=== PATIENT | female | born 1965 | race Caucasian/White ===

== ENCOUNTER 2016-08-26 10:26 | Emergency (ER) | payer OTHER ==
[~2016-08-26 10:26] MED LIST: ADVAIR 100-501 EAC1 IH; ADVAIR 1001 DISK W/D PO; ADVAIR 115-21 INH; ADVAIR 250-501 EACH; ADVAIR 2501 DISK W/D PO; ADVAIR DISKU1 250/50 INH; ADVIL200 M3 PO; ALB/IPRATROPIUM/1 E1 INH; ALBUTEROL17 GM INH; ALPRAZOLAM PO; AMITRIPTYLINE H25 MG PO; AMITRYPTYLINE PO; AMLODIPINE BESY10 MG PO; ASTELIN137 MCG INH; AVANDIA PO; BACLOFEN10 MG PO; BACTRIM DS TABL1 TAB PO; BENICAR HCT 20-1 TA1 PO; BUTRANS1 EACH TD; BYETTA10 MCG/0.0 INJ; CARAFATE1 G PO; COMBIVENT RESPIM4 GM IH; COMBIVENT14.7 GM INH; CYMBALTA PO; DEPAKOTE PO; DESYREL150 M1 PO; DIFLUCAN PO; DISCONTINUED MED; DOXYCYCLINE150 MG PO; FENOFIBRATE160 MG PO; FLEXERIL10 M1 PO; FLEXERIL10 MG PO; FLUOXETINE HCL20 M1 PO; GABAPENTIN400 M2 PO; GABAPENTIN600 MG; GABAPENTIN600 MG PO; GEODAN PO; GLUCOPHAGE XR500 MG PO; GLUCOPHAGE500 MG PO; HYDROCHLOROTHIA25 MG PO; HYDROCODON-ACE1 EAC7 PO; HYDROCODONE-A1 UDTA1 PO; HYDROXYZINE HCL25 M1 PO; HYDROXYZINE PAM25 M1 PO; IBUPROFEN800 MG PO; INDERAL LA60 M1 PO; INDERAL LA60 MG PO; INDERAL20 MG PO; KLONOPIN PO; LAMICTAL PO; LAMOTRIGINE; LAMOTRIGINE200 M1 PO; LAMOTRIGINE200 MG PO; LANSOPRAZOLE30 MG PO; LANTUS100 U/ML; LATUDA80 MG PO; LEVAQUIN PO; LEXAPRO PO; LIPITOR PO; LIPITOR40 MG PO; LITHIUM PO; LOPRESSOR PO; LORTAB; LORTAB 10-5001 EACH PO; LOTREL 10/20 MG1 CAP PO; LOVAZA; LOVAZA PO; LOVAZA1 G PO; METFORMIN HCL500 M1 PO; METFORMIN PO; METHOCARBAMOL500 MG PO; MOBIC15 MG PO; NABUMETONE500 M1 PO; NAPROSYN500 MG PO; NAPROXEN PO; NAPROXEN SODIU550 MG PO; NASONEX17 GM; NEURONTIN800 MG PO; NORVASC PO; NORVASC10 MG PO; OMACOR PO; OMEPRAZOLE40 M1 PO; OMEPRAZOLE40 MG; OMEPRAZOLE40 MG PO; ORUDIS75 M1 PO; PERCOCET5/325 PO; PHENERGAN PO; PREDNISONE PO; PREMARIN; PRILOSEC PO; PRILOSEC20 M1 PO; PRILOSEC40 MG PO; PROPRANOLOL ER PO; PROPRANOLOL HCL20 MG PO; PROPRANOLOL HCL60 M1 PO; RANITIDINE HCL150 M1 PO; REGLAN PO; ROBAXIN500 MG PO; SEROQUEL PO; SIMVASTATIN20 MG PO; SYMBICORT INH; SYNTHROID; SYNTHROID PO; SYNTHROID0.1 MG PO; SYNTHROID125 PO; TAGAMET PO; TIROSINT112 MCG PO; TOPAMAX PO; TOPAMAX50 MG PO; TOPIRAGEN100 MG PO; TOPIRAMATE100 MG PO; TOPROL XL PO; TRAZADONE; TRAZODONE HCL100 MG PO; TRAZODONE HCL150 MG PO; TRAZODONE PO; TRICOR PO; TRIGLIDE160 M1 PO; TRILEPTAL PO; TYLOX 5/500 CAP1 CAP PO; ULTRAM PO; VICODIN 5/500 T1 TAB PO; VISTARIL PO; VIT D PO; VITAL-D RX TABL1 TAB PO; VITAMIN D 4001 UDTAB PO; VITAMIN D50000 UNIT PO; ZETIA; ZETIA PO; ZOFRAN PO; ZOLOFT PO; [UNRECOGNIZED DRUG - OTHER]
[2016-08-26 11:46] LABS: BASOPHIL# 0.1 X10e3 (0-0.3); BASOPHIL% 0.9 % (0-2.5); EOSINOPHIL# 0.2 X10e3 (0-0.7); EOSINOPHIL% 1.7 % (0.0-7.0); HEMATOCRIT 41.6 % (35.0-45.0); LYMPHOCYTE# 5.1 X10e3 (1.0-3.5); LYMPHOCYTE% 54.7 % (17.0-45.0); MEAN CELL VOLUME 86.3 FL (83-96); MEAN CORPUSCULAR HGB CONC 33.6 g/dL (30-36); MEAN PLATELET VOLUME 9.6 FL (6.5-11.5); MONOCYTE# 0.5 X10e3 (0-1.0); MONOCYTE% 5.9 % (3.0-12.0); NEUTROPHIL# 3.4 X10e3 (1.5-7.1); NEUTROPHIL% 36.8 % (40-75); PLATELET COUNT 259 X10e3 (140-420); RED BLOOD COUNT 4.83 X10e (3.90-5.30); RED CELL DISTRIBUTION WIDTH 15.6 % (11.0-15.5); WHITE BLOOD COUNT 9.3 X10e3 (4.0-10.5)
[2016-08-26 11:47] LABS: DIFF IND YES
[2016-08-26 12:05] LABS: ANISOCYTOSIS SL; PLATELET ESTIMATE NORMAL (NORMAL); RBC NORMAL YES
[2016-08-26 12:06] LABS: POIKILOCYTOSIS SL
[2016-08-26 12:13] LABS: URINE SOURCE CLEAN CATCH
[2016-08-26 12:20] LABS: URINE APPEARANCE CLEAR; URINE BILIRUBIN NEG (NEG); URINE BLOOD NEG (NEG); URINE COLOR YELLOW; URINE GLUCOSE >1000 MG/DL (NEG); URINE KETONE TRACE (NEG); URINE LEUKOCYTE ESTERASE NEG (NEG); URINE NITRATE NEG (NEG); URINE PROTEIN NEG (NEG); URINE SPECIFIC GRAVITY 1.035 (1.003-1.035); URINE UROBILINOGEN 0.2 MG/DL (NEG)
[2016-08-26 12:27] LABS: CULTURE INDICATED? NO
[2016-08-26 13:26] LABS: ALBUMIN SERUM 4.2 g/dL (3.5-5.0); BETA HYDROXYBUTYRATE 1.63 MMOL/L (0.02-0.27); BILIRUBIN,TOTAL 0.6 mg/dL (0.2-2.0); CALCIUM SERUM 9.5 mg/dL (8.4-10.2); CREATININE SERUM 0.7 mg/dL (0.6-1.4); GLOM FILT RATE Estimated 98.9 mL/min (>60); POTASSIUM 3.3 mmol/L (3.5-5.1); PROTEIN TOTAL SERUM 8.9 g/dL (6.0-8.3)
[2016-08-26 13:30] LABS: BILIRUBIN,INDIRECT 0.6 mg/dL (0.0-0.9)
== END 2016-08-26 14:31 | disposition home or self-care (01) ==
LOC: CED 10:26
PROVIDERS: Emergency Medicine
DX: E11.65 Type 2 diabetes mellitus with hyperglycemia (principal); J44.9 Chronic obstructive pulmonary disease, unspecified; G89.29 Other chronic pain; F17.200 Nicotine dependence, unspecified, uncomplicated; R51 Headache; Z88.8 Allergy status to other drugs, medicaments and biological substances
CPT/HCPCS: 36415; 80048; 80076; 81003; 82010; 82947; 84703; 85025; 99284

== ENCOUNTER 2016-09-08 09:17 | Inpatient (IN) | payer OTHER ==
--- NOTE | ~2016-09-08 | FU ---
[facility] Nutrition Therapy DATE: 09/15/16 Patient: JO MCGRATH Physician: MONROE Address: [address] [place] [address] Room/Bed: [address] [place] [address], Zip: [place] [address] Admit Date: 09/08/16 Date of : [birth year] Height: 4 9 Weight: 140 63.6 NUTRITION MONITORING/FOLLOW-UP: Reason: Nutrition/ TPN follow up Anthropometrics: Wt: 63.6 kg Labs: Na+ 132 Cl- 98 Gluc 235 Creat 235 Alb 2.5 Phos 5.1 Trig (09/14) 269 CRP 3.5 Accuchecks 220-243 Meds: Protonix, levemir, novolog, TPN (off ATT), MgSO4, KCl, zofran, reglan I&O's: 3059/805, last BM 09/15 Skin: No breakdown noted, no edema noted Estimated Nutrition Needs: 5748-2708 kcals (25-30 kcals/kg) 90-116 grams protein (1.4-1.8 grams/kg) Assessment: Chart reviewed, events noted. Pt is on day 3 of TPN, which is to be discontinued after the current bad per MD note. TPN is currently off per RD observation, and was running at 60 mL/hr. advanced the pt to a clear liquid diet, and now a full liquid diet. RD spoke with the pt at bedside. Pt reports some abdominal pain with clear liquids, however, no n/v. NG tube has been removed and reglan was started. Per MD note, the pt's ileus resolved. RD provided extensive gastroparesis/ DM/ pancreatitis diet education per pt request. Pt voiced understanding of the information. RD provided printed materials for the pt's reference, and recommended that the pt attend free health classes at her local health department. Pt agreed. Pt is also agreeable to trying Glucerna once daily. RD instructed the pt to drink very slow to determine tolerance. Pt agreed. Please see recommendations below. Dx: 1) Unplanned weight loss RT clinical condition AEB pt reported ~50# weight loss-ACTIVE 2)Impaired glycemic control RT PMH, poor intake and dietary habits AEB glucose 235- ACTIVE Intervention: 1. Discontinue TPN per MD 2. Advance diet as tolerated to CC/ low fat/ 6 small 3. Glucerna once daily Monitoring, Evaluation and Goals: 1. TPN; provide at least 80% nutritional needs- NO LONGER RELEVANT (TPN BEING D/C'D) [facility] Nutrition Therapy DATE: 09/15/16 Patient: JO MCGRATH Physician: MONROE Address: [address] [place] [address] Room/Bed: [address] [place] [address], Zip: [place] [address] Admit Date: 09/08/16 Date of : [birth year] Height: 4 9 Weight: 140 63.6 2. Improve labs; Na+ (NOT MET), GLUCOSE (NOT MET), ACCUCHECKS (NOT MET), TRIG (NOT MET) 3. Weight; prevent unintentional weight loss- NOT MET 4. GI; promote regular GI function- IN PROGRESS NEW GOALS: 1. Oral intake; tolerate >50% of meals without c/o n/v, intolerance 2. Improve labs; glucose, accuchecks, trig, Na+, Phos 3. Weight; prevent unintentional weight loss 4. GI; promote regular GI function Recommendations: 1. Monitor closely for tolerance of clear liquids and full liquid diet. RD instructed the pt to eat slow and report any symptoms of GI intolerance. 2. Glucerna strawberry once daily for supplemental nutrition. RD instructed pt to drink slowly and monitor for symptoms of intolerance. 3. If the pt tolerates full liquids, advance to a CC/ low fat/ 6 small meals diet. Pt encouraged to also choose lower fiber foods; however, she does not require a low fiber restriction. 4. If the pt is unable to tolerate full liquid diet, consider obtaining enteral access and initiating enteral nutrition with Vital 1.5. RD will follow up to make appropriate recommendations. 5. Contact RD for any additional nutritional needs or questions regarding diet education provided. Status: Pt is at moderate nutritional risk. Respectfully, MARCI ARIZA RD, LD [facility] Nutrition[facility] cc: client file
--- NOTE | ~2016-09-08 | DS ---
Unit #: [id number] #: [id number] Patient: JO MCGRATH [id number] [address] [address] [id number] I MR#: [id number] NAME: JO MCGRATH ROOM: [facility] Age: 51 Sex: F Admission Date: 09/08/2016 : 1965 Discharge Date: Attending Physician: Cindy Burch M.D. Primary Care Physician: Devika Meza Aprn DISCHARGE SUMMARY DISCHARGE DIAGNOSES 1. Diabetic ketoacidosis. 2. Diabetes mellitus type 2 uncontrolled with gastroparesis. 3. Nausea and vomiting secondary to gastroparesis. 4. Abdominal pain likely urinary tract infection. CAT scan is pending at the time of dictation. Urine culture is negative. 5. Hypertension. 6. Hyperlipidemia. 7. Hypothyroidism. 8. Smoking. 9. History of pancreatitis. 10. History of possible liver disease. 11. Hypokalemia. 12. Hypophosphatemia. 13. Hypocalcemia. 14. Hypomagnesemia. 15. Moderate protein malnutrition. 16. Hyponatremia likely secondary to diabetic ketoacidosis pseudohyponatremia. CONSULTATIONS None. LABORATORY DATA Glucose 143, sodium 129, potassium 3.3, creatinine 0.5, calcium 7.2, AST 19, ALT 69, alk phos 170, albumin 2.2, phosphorus 2.2, magnesium 1.5. WBC 10.7, hemoglobin 10.7, platelets 222. Hemoglobin A1c 7.9. ALLERGIES Sells and oxycodone. DISCHARGE MEDICATIONS 1. Combivent inhalation 4 times daily. 2. Symbicort 160 mcg two puffs inhalation b.i.d. 3. Spiriva 1 inhalation daily. 4. Gabapentin 800 four times daily. 5. Amitriptyline 25 mg daily. 6. Paxil 20 daily. 7. Diphenhydramine 25 p.o. b.i.d. 8. Levemir 15 units subcu daily. 9. NovoLog low dose sliding scale. 10. Carmel 2,000 mg fish oil b.i.d. 11. Omeprazole 40 mg p.o. b.i.d. 12. Synthroid 75 mcg p.o. daily. Unit #: [id number] #: [id number] Patient: JO MCGRATH 13. Nitrofurantoin 100 mg p.o. b.i.d. HOSPITAL COURSE 51-year-old admitted because of uncontrolled diabetes. DKA with diabetes mellitus type 2 uncontrolled with gastroparesis: The patient was in ICU with insulin drip. Currently she was on (1) . I am going to change her to Levemir and sliding scale and discontinued the insulin drip and start on CCD diet. I gave prescription for Levemir in sliding scale. Abdominal pain, likely urinary tract infection: CAT scan is pending at the time of dictation. Patient will be discharged and CAT scan is negative. Continue with nitrofurantoin. Bilateral leg wounds, chronic: Continue with local wound care and follow with podiatry as an outpatient. Multiple electrolyte imbalance with hypokalemia, hypomagnesemia, hypophosphatemia, and hyponatremia. Replaced hyponatremia secondary to pseudohyponatremia from DKA. Continue with insulin. Patient received IV fluids. Hypothyroidism: Continue Synthroid. History of chronic pancreatitis. CAT scan is pending. Lipase and amylase negative. FOLLOWUP Patient will be discharged home after CAT scan is negative. Follow with family physician in one week time. Follow with podiatry for foot wound in one week time on (2) on admission. They are mostly skin crackles. No deep ulcers. Discharge time taken is 35 minutes. Dictated by... Muna Vickers/wilfred TD: 09/10/2016 11:30 JOB #: [id number] DISCHARGE SUMMARY Page 1 of 1 X Cindy Burch MD X DISCHARGE SUMMARY
--- NOTE | ~2016-09-08 | CT2 ---
[facility] A Service of [facility] & [facility] RADIOLOGY TEXT RESULTS PATIENT: JO MCGRATH LOCATION: [address] : [birth year] UNIT #: [id number] AGE: [address]: Cindy Burch MD SEX: F ORDER DR: [id number] [facility] [address]. [place], [place] [address] [id number] I MR#: [id number] Acc #: [id number] NAME: JO MCGRATH : 1965 SEX: F STUDY DATE/TIME: 09/10/2016 12:43 UNIT: [facility] ROOM: [facility] STUDY DESCRIPTION: CT Abd and Pelv W Cont Attending Physician: Cindy Burch M.D. Ordering Physician: Cindy Burch M.D. Primary Care Physician: Devika Meza Aprn MEDICAL IMAGING REPORT This report is preliminary unless electronic signature is present EXAM Abdomen and pelvis CT with contrast 09/10/2016 INDICATIONS 51-year-old female with abdominal pain and tenderness in the suprapubic area for 2 days. History of pancreatitis. History of hypertension and diabetes. Status post hysterectomy and cholecystectomy. Gastric stimulator placement. TECHNIQUE Contrast-enhanced abdomen and pelvis CT was performed. This CT exam was performed with one or more of the following radiation dose reduction techniques: automatic exposure control, adjustment of mA and/or kV according to patient size, and iterative reconstruction. COMPARISON 08/23/[address] ABDOMEN: Trace to small pleural effusions present bilaterally, left slightly greater than right. Probable compressive atelectasis or, less likely, pneumonia in the lung bases. There is no pericardial effusion. Reactive-appearing pericardial node present. Aorta demonstrates no aneurysm or dissection. The pancreas is abnormal, demonstrating moderately severe acute pancreatitis. There is peripancreatic edema and stranding in the peripancreatic fat. There is fluid in the small bowel mesentery tracking into both pericolic gutters, and there is a small amount of perihepatic and perisplenic ascites. At this point, there is no drainable fluid collection or distinct pseudocyst. Main, left, and right portal veins are STS. [facility] A Service of [facility] & [facility] RADIOLOGY TEXT RESULTS PATIENT: JO MCGRATH [facility] [id number] : [birth year] UNIT #: [id number] AGE: [address]: Cindy Burch MD SEX: F ORDER DR: patent. SMV and splenic vein patent. Probable reactive. Pancreatic and gastrohepatic lymph nodes present. Correlate with amylase and lipase levels. Spleen, adrenal glands, and liver unremarkable with the exception of mild fatty infiltration of the liver. Gallbladder surgically absent. Kidneys unremarkable with the exception of a nonobstructing 4-mm stone in the left kidney. The patient is status post gastric stimulator placement. CT PELVIS: Small amount of fluid tracking in the inferior small bowel mesentery midline. Bladder is distended, but otherwise unremarkable. Small amount of free fluid in the pelvis, but no drainable fluid collection. Uterus surgically absent. There is some secondary inflammatory change of the splenic flexure of the colon. Additional probable secondary inflammatory change of the hepatic flexure of the colon. The appendix is top normal in size. No evidence of bowel obstruction. Inguinal canals are unremarkable. Osseous structures demonstrate spinal degenerative change. No suspicious bone lesion. IMPRESSION 1. Imaging findings most characteristic of moderately severe acute pancreatitis. The adjacent peripancreatic vasculature is patent, and there are reactive-appearing peripancreatic and gastrohepatic lymph nodes. No distinct pseudocyst or drainable fluid collection at this time. Correlate with amylase and lipase levels. 2. Free fluid in the mesentery in both pericolic gutters tracking into the pelvis. No drainable fluid collection. 3. Trace to small pleural effusions, left greater than right, with probable bibasilar atelectasis or less likely pneumonia. 3. Postop changes of hysterectomy, gastric stimulator placement and cholecystectomy. 4. No suspicious bone lesion. 5. Probable secondary inflammatory change of the splenic and hepatic flexures of the colon, given proximity to the inflammation of the pancreas. STAT * RESULT Dictated by... Saúl Patel M.D. THIS IS AN ELECTRONICALLY VERIFIED REPORT Saúl Patel M.D. at 09/14/2016 11:50 AM LISA/jannet TD: 09/10/2016 13:46 JOB #: [id number] [facility]. [facility] A Service of [facility] RADIOLOGY TEXT RESULTS PATIENT: JO MCGRATH LOCATION: [place] [address]-17 : [birth year] UNIT #: [id number] AGE: [address]: Cindy Burch MD SEX: F ORDER DR: MEDICAL IMAGING REPORT Page 1 of 1 COPY
--- NOTE | ~2016-09-08 | CO ---
Unit #: [id number] #: [id number] Patient: JO MCGRATH [id number] [facility]. [address] [address] [id number] I MR#: [id number] NAME: JO MCGRATH ROOM: 326 Age: 51 Sex: F Admission Date: 09/08/2016 : 1965 Attending Physician: Cindy Burch M.D. Primary Care Physician: Devika Meza Consultation Date: 09/13/2016 CONSULTATION REPORT REASON FOR CONSULT Management of diabetes mellitus. HISTORY OF PRESENT ILLNESS This is a 51-year-old lady with history of diabetes mellitus and multiple medical problems. She initially presented on 09/08/2016 to the emergency room with a chief complaint of high blood sugars. She had not seen a primary care physician in a long time. She has been taking metformin 1000 mg b.i.d. On arrival in the emergency room, she was found to have the glucose level of 673 with anion gap of 22, CO2 of 19. She was started on insulin drip. On further evaluation, she had a CT scan of the abdomen done due to the abdominal pain, which showed moderate pancreatitis. She has been n.p.o. since her admission. She is being started on TPN. I have been asked to see the patient for further management. PAST MEDICAL HISTORY History of type 2 diabetes mellitus, poorly controlled; gastroparesis; chronic pancreatitis; ampullary stenosis; hypertension; and hyperlipidemia. PAST SURGICAL HISTORY Cholecystectomy, hysterectomy, and history of cardiac cath. SOCIAL HISTORY Lives with her ex-. Smokes pack and a half a day cigarettes daily. Declines alcohol use. FAMILY HISTORY Remarkable for diabetes mellitus. ALLERGIES To oxycodone and lithium. HOME MEDICATIONS List is reviewed. REVIEW OF SYSTEMS 12-point review of system is completed. Remarkable for the abdominal pain and nausea. No fever or chills. Rest of the 12-point review of systems is unremarkable. PHYSICAL EXAMINATION GENERAL: She looks comfortable, in no acute respiratory distress. Unit #: [id number] #: [id number] Patient: JO MCGRATH VITAL SIGNS: Temperature 99.7, pulse 97, respirations 18, blood pressure 124/80. HEENT: EOMI. Pupils are equally reactive to light. NECK: Supple. No thyromegaly noted. CHEST: Good air entry. No wheezing. ABDOMEN: Soft and nondistended. Positive generalized tenderness. No guarding or rigidity noted. EXTREMITIES: No edema. NEUROLOGIC: Nonfocal. Moving all extremities. DIAGNOSTIC STUDIES LABORATORY RESULTS: Creatinine is 0.4, sodium 131, potassium is 4.3, chloride 100, CO2 is 22. Hemoglobin A1c is 13.9. ASSESSMENT 1. Type 2 diabetes mellitus, poorly controlled. 2. Acute on chronic pancreatitis. 3. Hyponatremia. 4. Hyperlipidemia. 5. TPN. PLAN Plan is to continue insulin drip, Accu-Cheks every 8 hourly, insulin 30 units in the TPN bag. Monitor electrolytes closely. We will continue to follow the patient for further management of her diabetes. Dictated by... Muna Castillo/yevgeniy TD: 09/14/2016 13:25 JOB #: [id number] CONSULTATION REPORT Page 1 of 1 X Jeff Barnhart MD X CONSULTATION REPORT
--- NOTE | ~2016-09-08 | CO ---
Unit #: [id number] #: [id number] Patient: JO MCGRATH [id number] [address] [place], [place] [address] [id number] I MR#: [id number] NAME: JO MCGRATH ROOM: [facility] Age: 51 Sex: F Admission Date: 09/08/2016 : 1965 Attending Physician: Cindy Burch M.D. Primary Care Physician: Devika Meza Aprn Consultation Date: 09/10/2016 CONSULTATION REPORT REASON FOR CONSULTATION Abdominal pain. HISTORY OF PRESENTING ILLNESS Ms. Mcgrath is a 51-year-old lady with past history of diabetes mellitus and multiple medical problems. She was admitted with nausea, vomiting, and uncontrolled diabetes with DKA, which has been controlled since she has been here. She has been complaining of abdominal pain, which is more so in the upper abdomen, however, generalized. She says she is worse with eating. This has been going on for the last several years. The patient apparently has been seeing the [facility], Dr. Mcgrath, and had a gastric stimulator placed in April, about a year and a half ago. She thinks that her symptoms are worsens then and she has not had any relief in any of the symptoms including food tolerance. She denies any recent worsening of the symptoms. She does have a history of pancreatitis, previous CT scans have not shown up much information. She does have a history of ampullary stenosis, where she had ERCPs and sphincterotomies done in 2012. PAST MEDICAL HISTORY Significant for chronic pancreatitis, ampullary stenosis, hypertension, hyperlipidemia, diabetes mellitus, gastroparesis. She is status post cholecystectomy, hysterectomy, cardiac cath, and multiple other surgeries. SOCIAL HISTORY Smoker. Denies alcohol. Denies drug use. FAMILY HISTORY Noncontributory. ALLERGIES To oxycodone and lithium. HOME MEDICATIONS Current list of medications were reviewed. REVIEW OF SYSTEMS A complete 10-point review of systems was done, which is unremarkable other than as mentioned above. PHYSICAL EXAMINATION VITAL SIGNS: Stable. GENERAL: No acute distress. HEENT: Pupils are equal and reactive. Sclerae are anicteric. Oral Unit #: [id number] #: [id number] Patient: JO MCGRATH mucosa is moist. NECK: No JVD. No lymphadenopathy. CHEST: Clear to auscultation bilaterally. CARDIOVASCULAR: Regular rate and rhythm. No murmurs. ABDOMEN: Mildly distended. Scars from previous surgery and gastric stimulator felt. Some bruising around the gastric stimulator. No organomegaly or ascites. EXTREMITIES: Without clubbing, cyanosis, or edema. NEUROLOGIC: Grossly intact. SKIN: Warm and dry. ASSESSMENT AND PLAN 1. Chronic abdominal pain, possibly secondary to gastroparesis. LFTs, amylase, and lipase were normal. We will repeat the labs. CT scan of the abdomen has been done, which is pending at this time. Cause of pain is unclear. It is chronic in nature and no acute pathology apparently. However, CT is pending at this time. We will continue with symptomatic treatment for now, and further recommendations based on the CT scan findings and otherwise. 2. Severe gastroparesis, status post gastric stimulator placement. 3. Severe weight loss over the last 3 to 4 months. May need further workup. 4. Poorly controlled diabetes mellitus. Thank you, Dr. Burch, for this interesting consult. We will follow along. Dictated by... Muna Ybarra/yevgeniy TD: 09/10/2016 22:31 JOB #: [id number] CONSULTATION REPORT Page 1 of 1 X Tha Lackey MD CONSULTATION REPORT
--- NOTE | ~2016-09-08 | CR4 ---
[facility] A Service of [facility] & [facility] RADIOLOGY TEXT RESULTS PATIENT: JO MCGRATH LOCATION: [address] : [birth year] UNIT #: [id number] AGE: [address]: Cindy Burch MD SEX: F ORDER DR: [id number] [facility] [address] [place], [place] [address] [id number] I MR#: [id number] Acc #: [id number] NAME: JO MCGRATH : 1965 SEX: F STUDY DATE/TIME: 09/11/2016 9:16 UNIT: [facility] ROOM: [facility] STUDY DESCRIPTION: CR Abdomen Flat Upright or Dec Attending Physician: Cindy Burch M.D. Ordering Physician: Tha Lackey M.D. Primary Care Physician: Devika Meza R.N. MEDICAL IMAGING REPORT This report is preliminary unless electronic signature is present EXAM Flat and upright abdomen INDICATION Distension and abdominal pain for [address] abdomen and pelvis from yesterday. FINDINGS There is no evidence for bowel obstruction. Gas, stool and oral contrast in the colon. Gastric stimulator. No free air under the diaphragm. IMPRESSION Nonobstructive bowel gas pattern. Dictated by... Jordan Mo M.D. THIS IS AN ELECTRONICALLY VERIFIED REPORT Jordan Mo M.D. at 09/13/2016 12:36 PM Sherri TD: 09/11/2016 12:38 JOB #: [id number] MEDICAL IMAGING REPORT Page 1 of 1 COPY
--- NOTE | ~2016-09-08 | EKG ---
PATIENT: JO MCGRATH UNIT #: [id number] Ventricular Rate: 81 BPM Atrial Rate: 81 BPM P-R Interval: 146 ms QRS Duration: 82 ms Q-T Interval: 346 ms QTC Calculation(Bezet): 401 ms P [place]: 23 degrees Calculated R [place]: 74 degrees Calculated T [place]: 21 degrees Diagnosis Line: Normal sinus rhythm Diagnosis Line: Normal ECG Diagnosis Line: When compared with ECG of 09-APR-2016 21:32, Diagnosis Line: Nonspecific T wave abnormality, improved in Diagnosis Line: Anterior leads Diagnosis Line: Confirmed by COURTNEY CARNEY MD ([id number]) on 09/09/2016 Diagnosis Line: 6:00:44 PM INTERPRETING MD: ROMMEL MCCRAY
--- NOTE | ~2016-09-08 | HP ---
Unit #: [id number] #: [id number] Patient: JO MCGRATH [id number] [address] [address] [id number] I MR#: [id number] NAME: JO MCGRATH ROOM: 86568 Age: 51 Sex: F Admission Date: 09/08/2016 : 1965 Attending Physician: Ana Gillespie M.D. Primary Care Physician: Devika Meza Aprn HISTORY AND PHYSICAL CHIEF COMPLAINT Diabetic complaint. HISTORY OF PRESENT ILLNESS The patient is a 51-year-old female with a past medical history of diabetes, gastroparesis, hypertension, hyperlipidemia, hypothyroidism, pancreatitis and liver disease. She presented to the emergency department for evaluation of the above. The patient is a relatively poor historian. She was apparently seeing wound care regarding an abdominal wound. [facility] told her that her blood sugar was high and to follow up with her primary care physician. She saw her primary care physician today and "was told to come to the emergency department due to elevated blood sugar." Apparently someone had increased her metformin two weeks ago from 1000 mg daily to 1000 mg b.i.d. The patient does not routinely check her blood sugars at home. She denies any chest pain. No shortness of breath. No abdominal pain. She has had nausea and vomiting. She also reports occasional dysuria and urinary frequency. She states that she has lost about 22 pounds in the past year. On arrival in the emergency department the patient's pulse and blood pressure were 97 and 115/82 respectively. Glucose on comprehensive metabolic panel was 673. CO2 was 19, anion gap was 22. She was given 2 liters of normal saline and is currently on insulin drip. She is being admitted to [facility] for evaluation and further treatment. PAST MEDICAL HISTORY 1. Admission to [facility] 11/09/2014 through 11/16/2014 for abdominal pain and chronic pancreatitis. 2. Diabetes. 3. Hypertension. 4. Hyperlipidemia. 5. Hypothyroidism. 6. Gastroparesis. 7. Liver disease is listed on the triage sheet. However, the patient denies a liter problem. PAST SURGICAL HISTORY 1. Hysterectomy. 2. Cardiac catheterization 05/31/2012 showed angiographically normal coronary arteries. 3. Cholecystectomy. Unit #: [id number] #: [id number] Patient: JO MCGRATH 4. Left knee surgery. 5. Left ankle surgery. 6. Tonsillectomy. 7. Carpal tunnel surgery. 8. Right hand surgery. 9. What sounds like gastric stimulator. SOCIAL HISTORY The patient lives with her ex-. She smokes a pack and a half of cigarettes daily. She denies alcohol use. She states that she sometimes takes hydrocodone and Percocet that are not prescribed. FAMILY HISTORY Notable for her mother having diabetes. ALLERGIES Oxycodone, lithium. HOME MEDICATIONS Metformin. Home medications will need to be reviewed and verified. REVIEW OF SYSTEMS A complete review of systems is negative except as indicated in the history of present illness. PHYSICAL EXAMINATION GENERAL: The patient is a female who is awake and alert, in no acute distress. VITALS: Temperature 98.3, pulse 97, respiratory rate 18, blood pressure 115/82, oxygen saturation 100% on room air. HEENT: The head is atraumatic. Mucous membranes are dry. NECK: Supple. Trachea midline. LUNGS: Clear to auscultation bilaterally with no increased work of breathing. HEART: Regular rate and rhythm. ABDOMEN: Soft. She does have a well-healed scar in the right upper quadrant. She also has the palpable what sounds like gastric stimulator in the right lower quadrant. EXTREMITIES: Nontender with no pedal edema. NEUROLOGIC: The patient is awake and alert. She is oriented times three. She follows commands. PSYCHIATRIC: The patient is somewhat slow to answer questions, but is cooperative. SKIN: Skin of examined areas is warm and dry. DIAGNOSTIC STUDIES IMAGING: Chest x-ray shows no acute abnormality. Cervical spine x-ray shows no acute abnormality. LABORATORY: CBC notable for white blood cell count of 10.6. CMP notable for sodium 126, but corrects to 135 when glucose of 673 is accounted for. CO2 is 19, chloride 85, anion gap 22, alkaline phosphatase 211, beta hydroxybutyrate 5.23. Arterial blood gas shows pH 7.378, pCO2 34, pO2 96.9 on room air. Amylase and lipase are essentially normal. Urinalysis notable for trace leukocyte esterase, 3+ ketones, greater than 1000 Unit #: [id number] #: [id number] Patient: JO MCGRATH glucose, 10-25 white blood cells, 1+ bacteria. Urine tox screen is positive for tricyclics. CARDIOVASCULAR: EKG shows normal sinus rhythm with a rate of 81 beats per minute. ASSESSMENT The patient is a 51-year-old female with 1. Uncontrolled diabetes. The patient is currently on insulin drip. 2. Nausea and vomiting with a history of gastroparesis. 3. Urinary tract infection. Review of [facility] records shows no positive urine cultures for review. 4. Hypertension. 5. Hyperlipidemia. 6. Hypothyroidism. 7. Tobacco abuse. 8. History of pancreatitis. 9. Possible history of liver disease. PLAN 1. Admit to ICU. 2. N.p.o. except for ice chips. 3. Continue insulin drip per protocol. 4. Neurologic checks. 5. TSH, B12 and folate. 6. Bedrest. 7. Fall precautions. 8. P.r.n. Zofran. 9. Blood cultures times two. 10. Urine culture and sensitivity on urine in the lab. 11. Rocephin 1 g IV daily pending results of urine culture. 12. Cardiac enzymes. 13. Protonix for GI prophylaxis. 14. SCDs for DVT prophylaxis. 15. Repeat labs in the morning, including magnesium. 16. Additional workup and consultants based on the above. Thirty-nine minutes critical care time spent in the care of this patient (1:15 to 1:54 p.m.). Dictated by Muna Gonzalez/carlos TD: 09/08/2016 14:47 JOB #: [id number] Unit #: [id number] #: [id number] Patient: JO MCGRATH HISTORY AND PHYSICAL Page 1 of 1 X Ana Gillespie MD HISTORY AND PHYSICAL
--- NOTE | ~2016-09-08 | CR63 ---
[facility] A Service of [facility] RADIOLOGY TEXT RESULTS PATIENT: JO MCGRATH LOCATION: CED[facility] : 61 UNIT #: [id number] AGE: [address]: Ana Gillespie MD SEX: F ORDER DR: [id number] [place] [address] [facility]. [place], [place] [address] [id number] MR#: [id number] Acc #: [id number] NAME: JO MCGRATH : 1965 SEX: F STUDY DATE/TIME: 09/08/2016 11:03 UNIT: [facility] ROOM: STUDY DESCRIPTION: CR Chest 2 View Attending Physician: Kyrie Rodney M.D. Ordering Physician: Devi Mann Pa-C Primary Care Physician: Devika Meza MEDICAL IMAGING REPORT This report is preliminary unless electronic signature is present EXAM Chest 2 views 09/08/2016 1103 hours CLINICAL HISTORY 51-year-old woman complaining of shortness of air with cough for a couple of months. Pain in the left side of neck. Elevated blood glucose. COMPARISON 04/09/2016. FINDINGS Upright PA and lateral views of the chest demonstrates stable mild cardiomegaly. The aortic and hilar contours are normal. The lungs are clear. There is no effusion. There is mild endplate spurring in the thoracic spine. IMPRESSION Mild prominence of the cardiac silhouette similar to 04/09/2016. The lungs are clear of acute densities. There is no pleural effusion or pneumothorax. Dictated by... Renu Grover M.D. THIS IS AN ELECTRONICALLY VERIFIED REPORT Renu Grover M.D. at 09/08/2016 2:29 PM LAURA/darci TD: 09/08/2016 14:03 JOB #: [id number] MEDICAL IMAGING REPORT [facility] A Service of [facility] RADIOLOGY TEXT RESULTS PATIENT: JO MCGRATH LOCATION: CED[facility] : 61 UNIT #: [id number] AGE: [address]: Ana Gillespie MD SEX: F ORDER DR: Page 1 of 1 COPY
--- NOTE | ~2016-09-08 | DS ---
Unit #: [id number] #: [id number] Patient: JO MCGRATH [id number] [address] [address] [id number] I MR#: [id number] NAME: JO MCGRATH ROOM: 326 Age: 51 Sex: F Admission Date: 09/08/2016 : 1965 Discharge Date: Attending Physician: Cindy Burch M.D. Primary Care Physician: Devika Meza DISCHARGE SUMMARY DISCHARGE DIAGNOSES 1. Acute on chronic severe pancreatitis. 2. Ileus. 3. Diabetic ketoacidosis. 4. Diabetes mellitus type 2, poorly controlled, with gastroparesis. 5. Urinary tract infection, cultures negative. 6. Hypomagnesemia. 7. Hyponatremia. 8. Hypokalemia. 9. Hypophosphatemia. 10. Smoking. 11. History of possible liver disease. 12. Hypercalcemia. 13. Moderate protein malnutrition. 14. Pseudohyponatremia from diabetic ketoacidosis. CONSULTATION 1. Dr. Barnhart. 2. Dr. Lackey. 3. Dr. Lopez. PROCEDURES None. DIAGNOSTIC STUDIES LABORATORY DATA: Glucose 80, sodium 133, potassium 4.3, creatinine 0.5, magnesium 1.8, phosphorus 5.4, WBC 8.3, hemoglobin 10.5, platelets 261. IMAGING: CAT scan of the abdomen and pelvis shows moderately severe acute pancreatitis. ALLERGIES Carbon and oxycodone. DISCHARGE MEDICATIONS 1. Duo-Nebs inhalation four times daily. 2. Symbicort 160 mcg, two inhalations b.i.d. 3. Spiriva, one inhalation daily. 4. Gabapentin 800 p.o. four times daily. 5. Amitriptyline 25 daily. 6. Paxil 20 daily. 7. Breo Ellipta 100/25 mcg inhalation daily. 8. Levemir 40 units subcu q.8 a.m. 9. NovoLog medium dose sliding scale. Unit #: [id number] #: [id number] Patient: OJ MCGRATH 10. NovoLog 5 units subcu three times daily with meals. 11. Granby 3 2000 mg p.o. b.i.d. 12. Omeprazole 40 p.o. b.i.d. 13. Synthroid 75 mcg p.o. daily. HOSPITALIZATION COURSE 51-year-old admitted because of uncontrolled sugars. The patient was admitted in ICU for DKA protocol. DKA was resolved but later she developed abdominal pain. CAT scan has been done which shows acute severe pancreatitis. She does have a history of pancreatitis so she continues with TPN and p.o. Currently, she is tolerating diet. I will put her on low fat, low residue (1) diet. She wants to go home. She will follow [facility] dietary services manager for pancreatitis and gastroparesis. Diabetes mellitus type 2, uncontrolled with DKA and gastroparesis: Patient received insulin protocol DKA. Currently, she is on Levemir and NovoLog with meals. Sugars are well controlled. I gave her prescription. She will follow [facility] for that. She does have stimulator for gastroparesis. Multiple electrolyte imbalance, replaced, currently stable. Urinary tract infection: Cultures negative. She received Rocephin. She does not need antibiotics to go home. I discussed with Dr. Jain. Andrade to DC home. Follow with family physician in one week time. Follow with [facility] Gastroenterology for pancreatitis and gastroparesis in two weeks time. Discharge time taken is 32 minutes. Dictated by... Muna Vickers/simona TD: 09/16/2016 12:09 JOB #: [id number] DISCHARGE SUMMARY Page 1 of 1 X Cindy Burch MD X DISCHARGE SUMMARY
--- NOTE | ~2016-09-08 | FU ---
[facility] Nutrition Therapy DATE: 09/13/16 Patient: JO MCGRATH Physician: MONROE Address: [address] [place] [address] Room/Bed: [address], Zip: [place] [address] Admit Date: 09/08/16 Date of : [birth year] Height: 4 9 Weight: 147 67 NUTRITION MONITORING/FOLLOW-UP: Reason: TPN nutrition assessment/ nutrition follow up Anthropometrics: Ht: 4'9" (differs from initial assessment, this wt per pt report) Adm wt: 64.5 kg (142#) BMI: 30.8 *Wt since admission range from 64.5- 67 kg, noting abdominal distension and NG o/p Labs: Na+ 131 Gluc 135 BUN <5 Creat 0.4 Accuchecks 122-150 Meds: TPN (not initiated yet), D50%, novolin, protonix, MgSO4, KCl, zofran I&O's: 2665/3486, last BM 09/07, NG to LWS with average 600 cc output per RN report, abodmen tender and distended Skin: No changes noted, no edema Estimated Nutrition Needs: Increased due to pancreatitis, weight loss 6281-5820 kcals (25-30 kcals/kg) 90-116 grams protein (1.4-1.8 grams/kg) Diet: NPO Assessment: Chart reviewed, events noted. RN reports to RD that the pt has been diagnosed with pancreatitis, and TPN has been ordered. RD spoke with the pt at bedside. Pt reports that she has abdominal pain (slightly improved) with no n/v at this time. Pt is currently NPO due to pancreatitis. Pt reports that she used to weight 187#, and has lost ~50# with poor intake since gastric stimulator placement. Pt reports that she weighed close to 140# at her last doctor's visit. RN reports that the pt has ~600cc NG tube output x [address] spoke with pharmacy regarding TPN, recommended using 15% dextrose formula. Please see recommendations below. Dx: 1) Unplanned weight loss RT clinical condition, PMH AEB pt reported ~50# weight loss-ACTIVE 2) Impaired glycemic control RT PMH, poor PO intake and dietary habits AEB accuchecks 122-150, glucose 135- ACTIVE Intervention: 1. TPN 2. EN or diet advancement once medically feasible [facility] Nutrition Therapy DATE: 09/13/16 Patient: JO MCGRATH Physician: MONROE Address: [address] [place] [address] Room/Bed: [address], Zip: [place] [address] Admit Date: 09/08/16 Date of : [birth year] Height: 4 9 Weight: 147 67 Monitoring, Evaluation and Goals: 1. Oral intake- NO LONGER RELEVANT/ NOT MET (pt is NPO) 2. Improve labs- glucose improved, electrolytes improved 3. Weight; prevent further weight loss- IN PROGRESS NEW GOALS: 1. TPN; provide at least 80% estimated needs 2. Improve labs; Na+, glucose, accuchecks, trig 3. Weight; prevent unintentional weight loss 4. GI; promote regular GI function Recommendations: 1. Recommend using TPN 15% dextrose solution. Start at low rate (dosing per pharmacy) and increase gradually to goal of 90 mL/hr. This will provide: 1102 Kcals dextrose 1534 kcals total 108 grams protein GUR= 3.5 *RD not recommending to cycle lipids at this time d/t pancreatitis MONITOR ELECTROLYTES, GLUCOSE AND TRIGLYCERIDE LEVELS CLOSELY 2. Continue bowel rest until the pt is deemed appropriate for PO intake or enteral nutrition. Recommend Vital 1.5 if enteral nutrition is initiated. RD will follow to make recommendations as appropriate. 3. If the pt is deemed appropriate for PO intake, advance to clear liquid diet as tolerated. If the pt is able to tolerate clear liquids, advance to a low fat/ 45 gram consistent carbohydrate diet as tolerated. RD will follow up to order supplements as appropriate. Status: Pt is at severe nutritional risk. Respectfully, MARCI ARIZA RD, LD [facility] Nutrition Therapy DATE: 09/13/16 Patient: JO MCGRATH Physician: MONROE Address: [address] [place] [address] Room/Bed: [address], Zip: [place] [address] Admit Date: 09/08/16 Date of : [birth year] Height: 4 9 Weight: 147 67 Food and Nutritional Services [facility] cc: client file
--- NOTE | ~2016-09-08 | A ---
[facility] Nutrition Therapy DATE: 09/09/16 Patient: JO MCGRATH Physician: MONROE Address: [address] [place] [address] Room/Bed: [address], Zip: [place] [address] Admit Date: 09/08/16 Date of : [birth year] Height: 4 9 Weight: 142 64.5 NUTRITIONAL ASSESSMENT: REASON: DKA 51 yo female admitted for DKA/ uncontrolled DM PMH: DM, gastroparesis s/p gastric stimulator, HTN, HLD, hypothyroid, pancreatitis, liver disease Anthropometrics: Ht: 4'11" Wt: 64.5 kg BMI: 28.7 Labs: Na+ 131 Gluc 260 Ca++ 7.8 Alb 2.4 Mg++ 1.5 Phos 1.4 Accuchecks 118-299 HgbA1C 13.9 Meds: Glucophage, novolin, D5%, D50%, levemir, zofran, MgSO4, KCl, protonix I/O & Bowel function: , last BM 09/07 Skin Integrity: cracks on heels per RN report Edema: none noted Diet: Consistent carbohydrate Assessment: Chart reviewed, events noted. 51 yo female admitted for DKA. Insulin drip has been discontinued, and that pt has been ordered a consistent carbohydrate diet. Pt consumed Jello and orange juice this AM for breakfast for RN report. RN requested that RD provide basic DM diet education for the pt. RD spoke with the pt at bedside. Pt was drowsy at time of RD visit. Pt reports having a fair appetite at this time, and consuming mostly clear liquids for breakfast. Pt ordered soup for lunch, which has not arrived as of yet. Pt reports ~51# weight loss (187# to 136#) in the last "couple of months" due to decreased/ no intake in relation to GI issues. Pt reports h/o gastroparesis s/p gastric stimulator placement, and states that her intake has been declining since the stimulator was placed. Per weights in [facility], the pt weighed 175# in 2014; however, the pt's weight loss report is not consistent with weight history in [facility]. RN reports that 22# weight loss was noted in the initial H&P. RD provided brief gastroparesis/ DM diet education; however, the pt will need more extensive diet education when she is not lethargic. Based on RD interview with the pt, she will need basic DM/ gastroparesis education. RN discussed the pt's weight loss with RN, and recommended GI consult. Please see recommendations below. Dx: 1) Unplanned weight loss RT clinical condition, likely gastroparesis AEB pt reported weight loss, exact amount unknown. [facility] Nutrition Therapy DATE: 09/09/16 Patient: JO RAMILA Physician: MONROE Address: [address] [place] [address] Room/Bed: [address], Zip: [place] [address] Admit Date: 09/08/16 Date of : [birth year] Height: 4 9 Weight: 142 64.5 2) Impaired glycemic control RT likely poor likestyle habits and lack of nutrition-related knowledge AEB accuchecks 118-299, glucose 260. Intervention: 1. Gastroparesis/ DM diet education 2. Add 6 small meals to diet order 3. Glucerna if needed 4. Outpatient RD Monitoring, Evaluation and Goals: 1. Oral intake; tolerate >50% of meals without c/o GI intolerance 2. Improve labs; glucose, accuchecks, Phos, Mg++, A1C 3. Weight; prevent further unintentional weight loss Recommendations: 1. Add 6 small meals to current diet order d/t gastroparesis. Add heart healthy restriction once the pt's intake improves. 2. Glucerna BID PRN for decreased PO intake. 3. Pt would benefit from follow up diet education. RD will provide more extensive diet education at follow up once the pt is more awake. RD also recommending that the pt see an outpatient RD for gastroparesis/ DM diet eduaction for follow up and accountability. 4. GI consult due to the pt's reported weight loss since gastric stimulator placement (if deemed appropriate per the primary team). Pt is at moderate nutritional risk. RD will follow up per protocol. Respectfully, MARCI ARIZA RD, LD Food and Nutritional Services [facility] cc: client file
--- NOTE | ~2016-09-08 | CR72 ---
[facility] A Service of [facility] & [facility] RADIOLOGY TEXT RESULTS PATIENT: JO MCGRATH LOCATION: [facility] 326-01 : 63 UNIT #: [id number] AGE: [address]: Cindy Burch MD SEX: F ORDER DR: [id number] [facility] [address]. [place], [place] [address] [id number] I MR#: [id number] Acc #: [id number] NAME: JO MCGRATH : 1965 SEX: F STUDY DATE/TIME: 09/14/2016 3:33 UNIT: [facility] ROOM: [facility] STUDY DESCRIPTION: CR Chest Single View Portable Attending Physician: Cindy Burch M.D. Ordering Physician: Meryl Lopez M.D. Primary Care Physician: Devika Meza R.N. MEDICAL IMAGING REPORT This report is preliminary unless electronic signature is present EXAM Portable chest INDICATION Shortness of air and cough. PROCEDURE Frontal view chest COMPARISON 09/08/2016 FINDINGS Heart size is stable. Atelectasis in the medial left lung base. No visible pneumothorax. IMPRESSION Atelectasis in the medial left lung base, otherwise unchanged from 09/08/2016. Dictated by... Nate Little M.D. THIS IS AN ELECTRONICALLY VERIFIED REPORT Nate Little M.D. at 09/14/2016 9:53 PM JOELLE/tommy TD: 09/14/2016 09:00 JOB #: [id number] MEDICAL IMAGING REPORT Page 1 of 1 COPY
--- NOTE | ~2016-09-08 | CR58 ---
[facility] A Service of [facility] RADIOLOGY TEXT RESULTS PATIENT: JO MCGRATH LOCATION: [facility] [address]-60 : [birth year] UNIT #: [id number] AGE: [address]: Ana Gillespie MD SEX: F ORDER DR: [id number] [facility] [address]. [place], [place] [address] [id number] E MR#: [id number] Acc #: [id number] NAME: OJ MCGRATH : 1965 SEX: F STUDY DATE/TIME: 09/08/2016 UNIT: [facility] ROOM: STUDY DESCRIPTION: CR Cervical Spine 2 or 3 Views Attending Physician: Kyrie Rodney M.D. Ordering Physician: Devi Mann Pa-C Primary Care Physician: Devika Meza MEDICAL IMAGING REPORT This report is preliminary unless electronic signature is present EXAM Cervical spine series 09/08/2016 11:02 hours HISTORY 51-year-old with left-sided neck pain for a couple of months. No known injury. COMPARISON 08/14/2015 FINDINGS AP, lateral and open mouth views are performed. C1 to the mid C7 level are visualized. There is no prevertebral soft tissue swelling. There is disc height loss at C4-5 and C6-7. There is no fracture or malalignment. There is mild facet arthropathy left greater than right in the midcervical levels. There are atherosclerotic calcifications in the left greater than right neck in the region of the carotid bifurcations similar to 08/14/2015. IMPRESSION 1. No fracture or malalignment. Mild degenerative disc disease and C4-5 and C6-7 with mild multilevel facet arthropathy similar to 08/14/2015. 2. Stable soft tissue calcifications in the region of the carotid bifurcation on the left which could indicate significant underlying atherosclerosis. Dictated by... Renu Grover M.D. THIS IS AN ELECTRONICALLY VERIFIED REPORT Renu Grover M.D. at 09/08/2016 2:29 PM SMM/mathieu TD: 09/08/2016 13:51 [facility] A Service of [facility] RADIOLOGY TEXT RESULTS PATIENT: JO MCGRATH LOCATION: [facility] [id number] : [birth year] UNIT #: [id number] AGE: [address]: Ana Gillespie MD SEX: F ORDER DR: JOB #: [id number] MEDICAL IMAGING REPORT Page 1 of 1 COPY
--- NOTE | ~2016-09-08 | CO ---
Unit #: [id number] #: [id number] Patient: JO MCGRATH [id number] [address] [place], [place] [address] [id number] I MR#: [id number] NAME: JO MCGRATH ROOM: [facility] Age: 51 Sex: F Admission Date: 09/08/2016 : 1965 Attending Physician: Cindy Burch M.D. Primary Care Physician: Devika Meza Aprn Consultation Date: 09/08/2016 CONSULTATION REPORT HISTORY OF PRESENT ILLNESS This is a 51-year-old lady, history of diabetes mellitus with multiple medical problems. The patient admitted with nausea, vomiting, poorly controlled diabetes with DKA. She has been complaining of significant abdominal pain as well as difficulty eating going on for 10 years. The patient has been seeing [facility]. The patient has had a gastric stimulator placed about a year and a half ago. Symptoms are worsening. She has not had any significant improvement. The patient is currently having abdominal bloating. She has a history of pancreatitis. Previous CT scans have not shown a lot of information. The patient has a history of ampullary stenosis with ERCPs and sphincterotomies. The patient has a history of chronic pancreatitis, hyperlipidemia, diabetes mellitus, gastroparesis. She is also status post cholecystectomy. So, we have been asked to see this patient for ICU management for DKA, gastroparesis, rule out aspiration pneumonia. PAST MEDICAL HISTORY Significant for chronic pancreatitis, ampullary stenosis, hypertension, hyperlipidemia, diabetes mellitus, gastroparesis. PAST SURGICAL HISTORY Significant for cholecystectomy, hysterectomy, and cardiac cath. SOCIAL HISTORY The patient is a chronic smoker. No alcohol. No polysubstance use. FAMILY HISTORY Noncontributory. ALLERGIES The patient is allergic to oxycodone and lithium. HOME MEDICATIONS Include Combivent 1 inhalation q.i.d., Spiriva Respimat one puff daily, Breo Ellipta one puff daily, Paxil 20 mg daily, Wal-Dryl 20 mg b.i.d., gabapentin 800 mg q.i.d., omega fatty acids daily, Symbicort two puffs b.i.d., Norvasc 10 mg daily, metformin 1000 mg p.o. daily, Synthroid 75 mcg daily, omeprazole 40 mg b.i.d., amitriptyline 25 mg daily. REVIEW OF SYSTEMS Negative except as per the history of present illness. PHYSICAL EXAMINATION VITAL SIGNS: Temperature 99.0, respiratory rate 20, pulse is 99, Unit #: [id number] #: [id number] Patient: JO MCGRATH saturation 92% on room air. HEENT: Extraocular movements are intact. CHEST: Lungs are clear to auscultation bilaterally. CARDIOVASCULAR: Regular rate. No gallop. ABDOMEN: Soft, distended, very quite tender. EXTREMITIES: Show some wasting. Lower extremities shows edema +1. DIAGNOSTIC STUDIES LABORATORY RESULTS: Potassium 3.4, BUN and creatinine less than 5/0.4, glucose 131. White count 9, hemoglobin 10.9, platelets of 218. Total protein 5.5, albumin 2.0, bilirubin 0.4, alkaline phosphatase 188. Amylase and lipases are 10 and 13 respectively. Liver function tests within normal limits. Magnesium is 1.7. ASSESSMENT AND PLAN 1. Diabetes mellitus. 2. Diabetic ketoacidosis. 3. Ileus on nasogastric suction. 4. Gastroparesis with stimulator. 5. Acute on chronic respiratory failure. 6. Weight loss. We are going to continue treatment of DKA. We are going to continue low wall suction. We are going to continue scheduled nebs. I am not going to do any schedule steroids at this time. Antibiotics per Gastroenterology. I am going to follow. Thank you very much. Please page me at [phone] if you have any questions. Dictated by... Muna Panchal/yevgeniy TD: 09/12/2016 01:52 JOB #: [id number] CONSULTATION REPORT Page 1 of 1 X Manny Lopez MD CONSULTATION REPORT
--- NOTE | ~2016-09-08 | CR72 ---
[facility] A Service of [facility] RADIOLOGY TEXT RESULTS PATIENT: JO MCGRATH LOCATION: [facility] 326- : 61 UNIT #: [id number] AGE: [address]: Cindy Burch MD SEX: F ORDER DR: [id number] [facility] [address] [place], [place] [address] [id number] I MR#: [id number] Acc #: [id number] NAME: JO MCGRATH : 1965 SEX: F STUDY DATE/TIME: 09/15/2016 4:56 UNIT: [address] ROOM: [facility] STUDY DESCRIPTION: CR Chest Single View Portable Attending Physician: Cindy Burch M.D. Ordering Physician: Meryl Lopez M.D. Primary Care Physician: Devika Meza R.N. MEDICAL IMAGING REPORT This report is preliminary unless electronic signature is present EXAM Portable chest INDICATION Shortness of air today PROCEDURE Frontal view chest COMPARISON 09/14/2016 FINDINGS Heart size is unchanged. No new dense consolidation or visible pneumothorax. IMPRESSION Stable. Dictated by... Nate Little M.D. THIS IS AN ELECTRONICALLY VERIFIED REPORT Nate Little M.D. at 09/15/2016 10:13 PM JOELLE/tommy TD: 09/15/2016 10:13 JOB #: [id number] MEDICAL IMAGING REPORT Page 1 of 1 COPY
--- NOTE | ~2016-09-08 | EKG ---
PATIENT: JO MCGRATH UNIT #: [id number] Ventricular Rate: 90 BPM Atrial Rate: 90 BPM P-R Interval: 134 ms QRS Duration: 82 ms Q-T Interval: 384 ms QTC Calculation(Bezet): 469 ms P [place]: 37 degrees Calculated R [place]: 57 degrees Calculated T [place]: 32 degrees Diagnosis Line: Normal sinus rhythm Diagnosis Line: Possible Anterior infarct , age undetermined Diagnosis Line: Abnormal ECG Diagnosis Line: When compared with ECG of 08-SEP-2016 11:24, Diagnosis Line: (unconfirmed) Diagnosis Line: Nonspecific T wave abnormality, worse in Anterior Diagnosis Line: leads Diagnosis Line: QT has lengthened Diagnosis Line: Confirmed by SUMAN MCCRAY, ROSALINDA ([id number]) on 09/09/2016 Diagnosis Line: 9:18:50 PM INTERPRETING MD: SUMAN MCCRAY
[2016-09-08 10:19] LABS: BASOPHIL# 0.1 X10e3 (0-0.3); BASOPHIL% 0.7 % (0-2.5); EOSINOPHIL% 0.1 % (0.0-7.0); HEMOGLOBIN 12.6 gm/dL (12.0-16.0); LYMPHOCYTE# 3.5 X10e3 (1.0-3.5); LYMPHOCYTE% 32.5 % (17.0-45.0); MEAN CELL VOLUME 85.8 FL (83-96); MEAN CORPUSCULAR HEMOGLOBIN 28.4 PG (28-34); MEAN CORPUSCULAR HGB CONC 33.1 g/dL (30-36); MEAN PLATELET VOLUME 8.6 FL (6.5-11.5); MONOCYTE# 0.7 X10e3 (0-1.0); NEUTROPHIL# 6.3 X10e3 (1.5-7.1); NEUTROPHIL% 59.7 % (40-75); PLATELET COUNT 364 X10e3 (140-420); RED BLOOD COUNT 4.42 X10e (3.90-5.30); RED CELL DISTRIBUTION WIDTH 16.2 % (11.0-15.5); WHITE BLOOD COUNT 10.6 X10e3 (4.0-10.5)
[2016-09-08 10:22] LABS: DIFF IND NO
[2016-09-08 10:48] LABS: ALBUMIN SERUM 3.6 g/dL (3.5-5.0); BETA HYDROXYBUTYRATE 5.23 MMOL/L (0.02-0.27); BILIRUBIN, DIRECT 0.2 mg/dL (0.0-0.2); BILIRUBIN,INDIRECT 1.4 mg/dL (0.0-0.9); BILIRUBIN,TOTAL 1.6 mg/dL (0.2-2.0); BUN/CREATININE RATIO 16.66; CREATININE SERUM 0.9 mg/dL (0.6-1.4)
[2016-09-08 11:47] LABS: URINE SOURCE CLEAN CATCH
[2016-09-08 11:56] LABS: ARTERIAL BLD GAS O2 SATURATION 93.1 % (90.0-100.0); ARTERIAL BLOOD GAS CARBOXY HB 3.8 %sat (0.0-9.0); ARTERIAL BLOOD GAS MET HB 0.8 %sat (0.0-2.0); ARTERIAL BLOOD GAS PO2 96.9 mmHg (80.0-100); ARTERIAL BLOOD GAS pH 7.378 (7.350-7.450)
[2016-09-08 11:57] LABS: ARTERIAL BLOOD GAS ALLEN TEST NORMAL; ARTERIAL BLOOD GAS ART SITE RIGHT RADIAL; ARTERIAL BLOOD GAS DELIVERY ROOM AIR; ARTERIAL DRAW? YES
[2016-09-08 12:02] LABS: URINE APPEARANCE CLEAR; URINE BILIRUBIN NEG (NEG); URINE BLOOD NEG (NEG); URINE COLOR YELLOW; URINE GLUCOSE >1000 MG/DL (NEG); URINE KETONE 3+ (NEG); URINE LEUKOCYTE ESTERASE TRACE (NEG); URINE NITRATE NEG (NEG); URINE PROTEIN NEG (NEG); URINE SPECIFIC GRAVITY 1.036 (1.003-1.035); URINE UROBILINOGEN 0.2 MG/DL (NEG)
[2016-09-08 12:04] LABS: CULTURE INDICATED? YES; U HYALINE CASTS AUWI 0-2 /[LPF]; URBCS1 AUWI 0-2 /[HPF] (0-2); URINE BACTERIA AUWI 1+ (NEGATIVE)
[2016-09-08 12:16] LABS: AMYLASE 20 U/L (0-46); LIPASE 21 U/L (22-51)
[2016-09-08 12:18] LABS: URINE SQUAMOUS EPITHELIAL CELL FEW /[HPF]
[2016-09-08 12:33] LABS: AMPHETAMINE NEG (NEG); BARBITURATES NEG (NEG); BENZODIAZEPINES NEG (NEG); COCAINE NEG (NEG); MARIJUANA NEG (NEG); OPIATES NEG (NEG); TRICYCLIC ANTIDEPRESSANTS POS (NEG); U METHADONE NEG (NEG)
[2016-09-08] MEDS ORDERED: FORTAMET1000 MG PO (14:03)
[2016-09-08] MEDS ORDERED: NORVASC10 MG PO (14:03)
[2016-09-08] MEDS ORDERED: SYNTHROID75 MCG PO (14:04)
[2016-09-08] MEDS ORDERED: OMEPRAZOLE40 M1 PO (14:04)
[2016-09-08] MEDS ORDERED: AMITRIPTYLINE H25 MG PO (14:04)
[2016-09-08] MEDS ORDERED: PAXIL PO (14:05)
[2016-09-08] MEDS ORDERED: GABAPENTIN800 MG PO (14:05)
[2016-09-08] MEDS ORDERED: WAL-DRYL25 MG PO (14:05)
[2016-09-08] MEDS ORDERED: SYMBICORT PO (14:06)
[2016-09-08] MEDS ORDERED: COMBIVENT U/D3 M2 PO (14:06)
[2016-09-08] MEDS ORDERED: OMEGA 3 1,0001 EACH PO (14:06)
[2016-09-08] MEDS ORDERED: SPIRIVA RESPIMAT4 G1 PO (14:07)
[2016-09-08] MEDS ORDERED: BREO ELLIPTA 11 EACH PO (14:07)
[2016-09-08 15:12] LABS: CALCIUM SERUM 8.7 mg/dL (8.4-10.2); CREATININE SERUM 0.6 mg/dL (0.6-1.4); GLOM FILT RATE Estimated 104.1 mL/min (>60); POTASSIUM 3.5 mmol/L (3.5-5.1)
[2016-09-08 16:10] LABS: FOLATE (FOLIC ACID) 5.8 ng/mL (>5.8)
[2016-09-08 18:33] LABS: CALCIUM SERUM 8.4 mg/dL (8.4-10.2); CREATININE SERUM 0.5 mg/dL (0.6-1.4); GLOM FILT RATE Estimated 110.5 mL/min (>60); POTASSIUM 3.2 mmol/L (3.5-5.1)
[2016-09-08 18:43] LABS: CK TOTAL 44 IU/L (26-140)
[2016-09-09 02:09] LABS: CALCIUM SERUM 7.9 mg/dL (8.4-10.2); CREATININE SERUM 0.5 mg/dL (0.6-1.4); GLOM FILT RATE Estimated 110.5 mL/min (>60); POTASSIUM 3.4 mmol/L (3.5-5.1)
[2016-09-09 04:59] LABS: BASOPHIL% 0.1 % (0-2.5); DIFF IND NO; EOSINOPHIL# 0.1 X10e3 (0-0.7); EOSINOPHIL% 0.9 % (0.0-7.0); HEMATOCRIT 35.3 % (35.0-45.0); HEMOGLOBIN 11.7 gm/dL (12.0-16.0); LYMPHOCYTE# 3.8 X10e3 (1.0-3.5); LYMPHOCYTE% 36.6 % (17.0-45.0); MEAN CELL VOLUME 84.1 FL (83-96); MEAN CORPUSCULAR HEMOGLOBIN 27.8 PG (28-34); MEAN CORPUSCULAR HGB CONC 33.1 g/dL (30-36); MEAN PLATELET VOLUME 8.4 FL (6.5-11.5); MONOCYTE# 0.5 X10e3 (0-1.0); MONOCYTE% 4.8 % (3.0-12.0); NEUTROPHIL# 5.9 X10e3 (1.5-7.1); NEUTROPHIL% 57.6 % (40-75); PLATELET COUNT 273 X10e3 (140-420); RED BLOOD COUNT 4.19 X10e (3.90-5.30); RED CELL DISTRIBUTION WIDTH 16.5 % (11.0-15.5); WHITE BLOOD COUNT 10.3 X10e3 (4.0-10.5)
[2016-09-09 05:29] LABS: ALBUMIN SERUM 2.4 g/dL (3.5-5.0); BILIRUBIN,TOTAL 0.4 mg/dL (0.2-2.0); BUN/CREATININE RATIO 13.33; CALCIUM SERUM 7.9 mg/dL (8.4-10.2); CREATININE SERUM 0.6 mg/dL (0.6-1.4); GLOM FILT RATE Estimated 104.1 mL/min (>60); MAGNESIUM 1.5 mg/dL (1.6-3.0); PHOSPHOROUS 1.4 mg/dL (2.5-4.6); POTASSIUM 3.5 mmol/L (3.5-5.1)
[2016-09-09 12:36] LABS: BUN/CREATININE RATIO 12.85; CALCIUM SERUM 7.8 mg/dL (8.4-10.2); CREATININE SERUM 0.7 mg/dL (0.6-1.4); GLOM FILT RATE Estimated 98.9 mL/min (>60); POTASSIUM 4.5 mmol/L (3.5-5.1)
[2016-09-09 16:43] LABS: BUN/CREATININE RATIO 13.33; CALCIUM SERUM 7.8 mg/dL (8.4-10.2); CREATININE SERUM 0.6 mg/dL (0.6-1.4); GLOM FILT RATE Estimated 104.1 mL/min (>60); PHOSPHOROUS 1.7 mg/dL (2.5-4.6); POTASSIUM 4.3 mmol/L (3.5-5.1)
[2016-09-09 22:50] LABS: CALCIUM SERUM 7.2 mg/dL (8.4-10.2); CREATININE SERUM 0.5 mg/dL (0.6-1.4); GLOM FILT RATE Estimated 110.5 mL/min (>60); POTASSIUM 3.5 mmol/L (3.5-5.1)
[2016-09-10 04:00] LABS: BASOPHIL% 0.3 % (0-2.5); EOSINOPHIL# 0.1 X10e3 (0-0.7); EOSINOPHIL% 1.2 % (0.0-7.0); HEMATOCRIT 32.6 % (35.0-45.0); HEMOGLOBIN 10.7 gm/dL (12.0-16.0); LYMPHOCYTE# 3.9 X10e3 (1.0-3.5); LYMPHOCYTE% 36.4 % (17.0-45.0); MEAN CELL VOLUME 85.2 FL (83-96); MEAN CORPUSCULAR HEMOGLOBIN 27.9 PG (28-34); MEAN CORPUSCULAR HGB CONC 32.8 g/dL (30-36); MEAN PLATELET VOLUME 8.5 FL (6.5-11.5); MONOCYTE# 0.6 X10e3 (0-1.0); MONOCYTE% 5.1 % (3.0-12.0); NEUTROPHIL# 6.1 X10e3 (1.5-7.1); PLATELET COUNT 222 X10e3 (140-420); RED BLOOD COUNT 3.83 X10e (3.90-5.30); RED CELL DISTRIBUTION WIDTH 16.2 % (11.0-15.5); WHITE BLOOD COUNT 10.7 X10e3 (4.0-10.5)
[2016-09-10 04:01] LABS: DIFF IND NO
[2016-09-10 04:23] LABS: ALBUMIN SERUM 2.2 g/dL (3.5-5.0); BILIRUBIN,TOTAL 0.6 mg/dL (0.2-2.0); CALCIUM SERUM 7.2 mg/dL (8.4-10.2); CREATININE SERUM 0.5 mg/dL (0.6-1.4); GLOM FILT RATE Estimated 110.5 mL/min (>60); MAGNESIUM 1.5 mg/dL (1.6-3.0); PHOSPHOROUS 2.2 mg/dL (2.5-4.6); POTASSIUM 3.3 mmol/L (3.5-5.1); PROTEIN TOTAL SERUM 6.1 g/dL (6.0-8.3)
[2016-09-10 12:11] LABS: CALCIUM SERUM 7.6 mg/dL (8.4-10.2); CARBON DIOXIDE 20 mmol/L (22-31); CHLORIDE 102 mmol/L (100-111); CREATININE SERUM 0.4 mg/dL (0.6-1.4); GLOM FILT RATE Estimated 118.9 mL/min (>60); GLUCOSE FASTING 120 mg/dL (70-110); POTASSIUM 3.7 mmol/L (3.5-5.1); SODIUM 130 mmol/L (135-145)
[2016-09-10 12:12] LABS: BLOOD UREA NITROGEN <5 mg/dL (9-23)
[2016-09-10 16:27] LABS: CALCIUM SERUM 7.7 mg/dL (8.4-10.2); CARBON DIOXIDE 18 mmol/L (22-31); CHLORIDE 101 mmol/L (100-111); CREATININE SERUM 0.3 mg/dL (0.6-1.4); GLOM FILT RATE Estimated 130.8 mL/min (>60); GLUCOSE FASTING 180 mg/dL (70-110); POTASSIUM 3.5 mmol/L (3.5-5.1); SODIUM 129 mmol/L (135-145)
[2016-09-10 16:28] LABS: BLOOD UREA NITROGEN <5 mg/dL (9-23); BUN/CREATININE RATIO 16.66
[2016-09-10 23:22] LABS: BLOOD UREA NITROGEN <5 mg/dL (9-23); CALCIUM SERUM 7.5 mg/dL (8.4-10.2); CARBON DIOXIDE 21 mmol/L (22-31); CHLORIDE 102 mmol/L (100-111); CREATININE SERUM 0.4 mg/dL (0.6-1.4); GLOM FILT RATE Estimated 118.9 mL/min (>60); GLUCOSE FASTING 136 mg/dL (70-110); SODIUM 130 mmol/L (135-145)
[2016-09-11 04:44] LABS: BASOPHIL% 0.4 % (0-2.5); EOSINOPHIL# 0.1 X10e3 (0-0.7); EOSINOPHIL% 1.4 % (0.0-7.0); HEMATOCRIT 33.5 % (35.0-45.0); HEMOGLOBIN 10.9 gm/dL (12.0-16.0); LYMPHOCYTE# 3.2 X10e3 (1.0-3.5); LYMPHOCYTE% 35.7 % (17.0-45.0); MEAN CELL VOLUME 84.6 FL (83-96); MEAN CORPUSCULAR HEMOGLOBIN 27.6 PG (28-34); MEAN CORPUSCULAR HGB CONC 32.7 g/dL (30-36); MEAN PLATELET VOLUME 8.7 FL (6.5-11.5); MONOCYTE# 0.6 X10e3 (0-1.0); MONOCYTE% 6.2 % (3.0-12.0); NEUTROPHIL# 5.1 X10e3 (1.5-7.1); NEUTROPHIL% 56.3 % (40-75); PLATELET COUNT 218 X10e3 (140-420); RED BLOOD COUNT 3.96 X10e (3.90-5.30); RED CELL DISTRIBUTION WIDTH 16.2 % (11.0-15.5)
[2016-09-11 04:46] LABS: DIFF IND NO
[2016-09-11 05:48] LABS: ALKALINE PHOSPHATASE 188 U/L (32-92); ALT (SGPT) 15 U/L (10-40); AMYLASE 10 U/L (0-46); AST (SGOT) 20 U/L (10-42); BILIRUBIN,TOTAL 0.4 mg/dL (0.2-2.0); CALCIUM SERUM 7.8 mg/dL (8.4-10.2); CARBON DIOXIDE 21 mmol/L (22-31); CHLORIDE 102 mmol/L (100-111); CREATININE SERUM 0.4 mg/dL (0.6-1.4); GLOM FILT RATE Estimated 118.9 mL/min (>60); GLUCOSE FASTING 131 mg/dL (70-110); LIPASE 13 U/L (22-51); PHOSPHOROUS 2.7 mg/dL (2.5-4.6); POTASSIUM 3.4 mmol/L (3.5-5.1); PROTEIN TOTAL SERUM 5.5 g/dL (6.0-8.3); SODIUM 131 mmol/L (135-145)
[2016-09-11 05:49] LABS: BLOOD UREA NITROGEN <5 mg/dL (9-23)
[2016-09-11 11:17] LABS: BLOOD UREA NITROGEN <5 mg/dL (9-23); CALCIUM SERUM 8.1 mg/dL (8.4-10.2); CARBON DIOXIDE 20 mmol/L (22-31); CHLORIDE 103 mmol/L (100-111); CREATININE SERUM 0.4 mg/dL (0.6-1.4); GLOM FILT RATE Estimated 118.9 mL/min (>60); GLUCOSE FASTING 131 mg/dL (70-110); POTASSIUM 3.4 mmol/L (3.5-5.1); SODIUM 131 mmol/L (135-145)
[2016-09-11 21:41] LABS: BLOOD UREA NITROGEN <5 mg/dL (9-23); CALCIUM SERUM 7.9 mg/dL (8.4-10.2); CARBON DIOXIDE 19 mmol/L (22-31); CHLORIDE 103 mmol/L (100-111); CREATININE SERUM 0.5 mg/dL (0.6-1.4); GLOM FILT RATE Estimated 110.5 mL/min (>60); GLUCOSE FASTING 150 mg/dL (70-110); POTASSIUM 3.1 mmol/L (3.5-5.1); SODIUM 132 mmol/L (135-145)
[2016-09-12 04:19] LABS: BASOPHIL% 0.3 % (0-2.5); EOSINOPHIL# 0.2 X10e3 (0-0.7); HEMATOCRIT 33.6 % (35.0-45.0); LYMPHOCYTE% 37.2 % (17.0-45.0); MEAN CELL VOLUME 84.2 FL (83-96); MEAN CORPUSCULAR HEMOGLOBIN 27.7 PG (28-34); MEAN CORPUSCULAR HGB CONC 32.9 g/dL (30-36); MEAN PLATELET VOLUME 8.8 FL (6.5-11.5); MONOCYTE# 0.7 X10e3 (0-1.0); MONOCYTE% 9.4 % (3.0-12.0); NEUTROPHIL# 4.1 X10e3 (1.5-7.1); NEUTROPHIL% 51.1 % (40-75); PLATELET COUNT 226 X10e3 (140-420); RED BLOOD COUNT 3.99 X10e (3.90-5.30); RED CELL DISTRIBUTION WIDTH 16.4 % (11.0-15.5); WHITE BLOOD COUNT 7.9 X10e3 (4.0-10.5)
[2016-09-12 04:24] LABS: DIFF IND NO
[2016-09-12 04:56] LABS: ALBUMIN SERUM 2.1 g/dL (3.5-5.0); ALKALINE PHOSPHATASE 211 U/L (32-92); ALT (SGPT) 15 U/L (10-40); AMYLASE 11 U/L (0-46); AST (SGOT) 21 U/L (10-42); BILIRUBIN,TOTAL 0.4 mg/dL (0.2-2.0); BLOOD UREA NITROGEN <5 mg/dL (9-23); CALCIUM SERUM 8.1 mg/dL (8.4-10.2); CARBON DIOXIDE 20 mmol/L (22-31); CHLORIDE 105 mmol/L (100-111); CREATININE SERUM 0.5 mg/dL (0.6-1.4); GLOM FILT RATE Estimated 110.5 mL/min (>60); GLUCOSE FASTING 112 mg/dL (70-110); LIPASE 15 U/L (22-51); MAGNESIUM 1.7 mg/dL (1.6-3.0); PHOSPHOROUS 3.1 mg/dL (2.5-4.6); POTASSIUM 3.7 mmol/L (3.5-5.1); PROTEIN TOTAL SERUM 6.7 g/dL (6.0-8.3); SODIUM 133 mmol/L (135-145)
[2016-09-12 10:40] LABS: CALCIUM SERUM 8.4 mg/dL (8.4-10.2); CARBON DIOXIDE 21 mmol/L (22-31); CHLORIDE 104 mmol/L (100-111); CREATININE SERUM 0.3 mg/dL (0.6-1.4); GLOM FILT RATE Estimated 130.8 mL/min (>60); GLUCOSE FASTING 143 mg/dL (70-110); POTASSIUM 3.6 mmol/L (3.5-5.1); SODIUM 133 mmol/L (135-145)
[2016-09-12 10:41] LABS: BLOOD UREA NITROGEN <5 mg/dL (9-23); BUN/CREATININE RATIO 16.66
[2016-09-12 16:48] LABS: CALCIUM SERUM 8.1 mg/dL (8.4-10.2); CARBON DIOXIDE 20 mmol/L (22-31); CHLORIDE 100 mmol/L (100-111); CREATININE SERUM 0.4 mg/dL (0.6-1.4); GLOM FILT RATE Estimated 118.9 mL/min (>60); GLUCOSE FASTING 158 mg/dL (70-110); PHOSPHOROUS 3.3 mg/dL (2.5-4.6); POTASSIUM 3.5 mmol/L (3.5-5.1); SODIUM 131 mmol/L (135-145)
[2016-09-12 16:50] LABS: BLOOD UREA NITROGEN <5 mg/dL (9-23)
[2016-09-12 22:49] LABS: BLOOD UREA NITROGEN <5 mg/dL (9-23); CALCIUM SERUM 8.4 mg/dL (8.4-10.2); CARBON DIOXIDE 20 mmol/L (22-31); CHLORIDE 101 mmol/L (100-111); CREATININE SERUM 0.5 mg/dL (0.6-1.4); GLOM FILT RATE Estimated 110.5 mL/min (>60); GLUCOSE FASTING 102 mg/dL (70-110); POTASSIUM 3.4 mmol/L (3.5-5.1); SODIUM 132 mmol/L (135-145)
[2016-09-13 04:14] LABS: BASOPHIL% 0.3 % (0-2.5); DIFF IND NO; EOSINOPHIL# 0.2 X10e3 (0-0.7); EOSINOPHIL% 2.6 % (0.0-7.0); HEMATOCRIT 34.5 % (35.0-45.0); HEMOGLOBIN 11.1 gm/dL (12.0-16.0); LYMPHOCYTE# 3.4 X10e3 (1.0-3.5); LYMPHOCYTE% 40.4 % (17.0-45.0); MEAN CELL VOLUME 85.3 FL (83-96); MEAN CORPUSCULAR HEMOGLOBIN 27.4 PG (28-34); MEAN CORPUSCULAR HGB CONC 32.1 g/dL (30-36); MEAN PLATELET VOLUME 8.5 FL (6.5-11.5); MONOCYTE# 0.9 X10e3 (0-1.0); MONOCYTE% 10.4 % (3.0-12.0); NEUTROPHIL# 3.9 X10e3 (1.5-7.1); NEUTROPHIL% 46.3 % (40-75); PLATELET COUNT 277 X10e3 (140-420); RED BLOOD COUNT 4.05 X10e (3.90-5.30); RED CELL DISTRIBUTION WIDTH 16.9 % (11.0-15.5); WHITE BLOOD COUNT 8.3 X10e3 (4.0-10.5)
[2016-09-13 04:34] LABS: BLOOD UREA NITROGEN <5 mg/dL (9-23); CALCIUM SERUM 8.3 mg/dL (8.4-10.2); CARBON DIOXIDE 22 mmol/L (22-31); CHLORIDE 102 mmol/L (100-111); CREATININE SERUM 0.4 mg/dL (0.6-1.4); GLOM FILT RATE Estimated 118.9 mL/min (>60); GLUCOSE FASTING 136 mg/dL (70-110); MAGNESIUM 1.9 mg/dL (1.6-3.0); PHOSPHOROUS 3.1 mg/dL (2.5-4.6); POTASSIUM 4.4 mmol/L (3.5-5.1); SODIUM 131 mmol/L (135-145)
[2016-09-13 11:07] LABS: CALCIUM SERUM 8.8 mg/dL (8.4-10.2); CARBON DIOXIDE 22 mmol/L (22-31); CHLORIDE 100 mmol/L (100-111); CREATININE SERUM 0.4 mg/dL (0.6-1.4); GLOM FILT RATE Estimated 118.9 mL/min (>60); GLUCOSE FASTING 135 mg/dL (70-110); POTASSIUM 4.3 mmol/L (3.5-5.1); SODIUM 131 mmol/L (135-145)
[2016-09-13 11:09] LABS: BLOOD UREA NITROGEN <5 mg/dL (9-23)
[2016-09-13 17:29] LABS: CALCIUM SERUM 8.6 mg/dL (8.4-10.2); CARBON DIOXIDE 19 mmol/L (22-31); CHLORIDE 101 mmol/L (100-111); POTASSIUM 4.3 mmol/L (3.5-5.1); SODIUM 130 mmol/L (135-145)
[2016-09-13 17:41] LABS: BLOOD UREA NITROGEN <5 mg/dL (9-23); CREATININE SERUM 0.4 mg/dL (0.6-1.4); GLOM FILT RATE Estimated 118.9 mL/min (>60); GLUCOSE FASTING 123 mg/dL (70-110); PHOSPHOROUS 3.3 mg/dL (2.5-4.6)
[2016-09-14 04:53] LABS: BASOPHIL# 0.1 X10e3 (0-0.3); BASOPHIL% 1.1 % (0-2.5); EOSINOPHIL# 0.2 X10e3 (0-0.7); EOSINOPHIL% 2.8 % (0.0-7.0); HEMATOCRIT 33.8 % (35.0-45.0); HEMOGLOBIN 11.6 gm/dL (12.0-16.0); LYMPHOCYTE# 3.1 X10e3 (1.0-3.5); LYMPHOCYTE% 37.8 % (17.0-45.0); MEAN CELL VOLUME 84.2 FL (83-96); MEAN CORPUSCULAR HEMOGLOBIN 28.8 PG (28-34); MEAN CORPUSCULAR HGB CONC 34.2 g/dL (30-36); MEAN PLATELET VOLUME 8.7 FL (6.5-11.5); MONOCYTE# 0.8 X10e3 (0-1.0); MONOCYTE% 9.7 % (3.0-12.0); NEUTROPHIL# 3.9 X10e3 (1.5-7.1); NEUTROPHIL% 48.6 % (40-75); PLATELET COUNT 276 X10e3 (140-420); RED BLOOD COUNT 4.02 X10e (3.90-5.30); RED CELL DISTRIBUTION WIDTH 16.6 % (11.0-15.5); WHITE BLOOD COUNT 8.1 X10e3 (4.0-10.5)
[2016-09-14 04:55] LABS: DIFF IND NO
[2016-09-14 05:41] LABS: ALBUMIN SERUM 2.5 g/dL (3.5-5.0); ALKALINE PHOSPHATASE 198 U/L (32-92); ALT (SGPT) 15 U/L (10-40); AST (SGOT) 25 U/L (10-42); BILIRUBIN,TOTAL 0.6 mg/dL (0.2-2.0); CALCIUM SERUM 8.9 mg/dL (8.4-10.2); CARBON DIOXIDE 21 mmol/L (22-31); CHLORIDE 98 mmol/L (100-111); CREATININE SERUM 0.4 mg/dL (0.6-1.4); GLOM FILT RATE Estimated 118.9 mL/min (>60); GLUCOSE FASTING 170 mg/dL (70-110); MAGNESIUM 1.5 mg/dL (1.6-3.0); PHOSPHOROUS 4.7 mg/dL (2.5-4.6); POTASSIUM 3.8 mmol/L (3.5-5.1); PROTEIN TOTAL SERUM 7.2 g/dL (6.0-8.3); SODIUM 129 mmol/L (135-145); TRIGLYCERIDES 269 mg/dL (10-160)
[2016-09-14 05:42] LABS: BLOOD UREA NITROGEN <5 mg/dL (9-23)
[2016-09-15 05:57] LABS: BASOPHIL% 0.6 % (0-2.5); EOSINOPHIL# 0.2 X10e3 (0-0.7); EOSINOPHIL% 2.7 % (0.0-7.0); HEMATOCRIT 34.6 % (35.0-45.0); HEMOGLOBIN 11.3 gm/dL (12.0-16.0); LYMPHOCYTE# 3.5 X10e3 (1.0-3.5); LYMPHOCYTE% 46.2 % (17.0-45.0); MEAN CELL VOLUME 84.5 FL (83-96); MEAN CORPUSCULAR HEMOGLOBIN 27.6 PG (28-34); MEAN CORPUSCULAR HGB CONC 32.6 g/dL (30-36); MEAN PLATELET VOLUME 8.4 FL (6.5-11.5); MONOCYTE# 0.9 X10e3 (0-1.0); MONOCYTE% 12.6 % (3.0-12.0); NEUTROPHIL# 2.8 X10e3 (1.5-7.1); NEUTROPHIL% 37.9 % (40-75); PLATELET COUNT 291 X10e3 (140-420); RED CELL DISTRIBUTION WIDTH 16.7 % (11.0-15.5); WHITE BLOOD COUNT 7.5 X10e3 (4.0-10.5)
[2016-09-15 05:59] LABS: DIFF IND NO
[2016-09-15 06:30] LABS: ALBUMIN SERUM 2.5 g/dL (3.5-5.0); BILIRUBIN,TOTAL 0.7 mg/dL (0.2-2.0); CALCIUM SERUM 9.1 mg/dL (8.4-10.2); CREATININE SERUM 0.5 mg/dL (0.6-1.4); GLOM FILT RATE Estimated 110.5 mL/min (>60); MAGNESIUM 1.8 mg/dL (1.6-3.0); PHOSPHOROUS 5.1 mg/dL (2.5-4.6); POTASSIUM 4.4 mmol/L (3.5-5.1)
[2016-09-16 05:23] LABS: HEMATOCRIT 32.1 % (35.0-45.0); HEMOGLOBIN 10.5 gm/dL (12.0-16.0); MEAN CELL VOLUME 84.7 FL (83-96); MEAN CORPUSCULAR HEMOGLOBIN 27.7 PG (28-34); MEAN CORPUSCULAR HGB CONC 32.7 g/dL (30-36); MEAN PLATELET VOLUME 8.8 FL (6.5-11.5); RED BLOOD COUNT 3.79 X10e (3.90-5.30); RED CELL DISTRIBUTION WIDTH 16.8 % (11.0-15.5); WHITE BLOOD COUNT 8.3 X10e3 (4.0-10.5)
[2016-09-16 06:26] LABS: ALBUMIN SERUM 2.5 g/dL (3.5-5.0); BILIRUBIN,TOTAL 0.6 mg/dL (0.2-2.0); CALCIUM SERUM 9.1 mg/dL (8.4-10.2); CREATININE SERUM 0.5 mg/dL (0.6-1.4); GLOM FILT RATE Estimated 110.5 mL/min (>60); MAGNESIUM 1.8 mg/dL (1.6-3.0); PHOSPHOROUS 5.4 mg/dL (2.5-4.6); POTASSIUM 4.3 mmol/L (3.5-5.1); PROTEIN TOTAL SERUM 6.9 g/dL (6.0-8.3)
[2016-09-16] MEDS ORDERED: LEVEMIR100 UNITS/ SUBQ (12:04)
[2016-09-16] MEDS ORDERED: NOVOLOG100 UNITS/ SUBQ (12:05)
[2016-09-16] MEDS ORDERED: NOVOLOG100 UNIT/1 SUBQ (12:06)
== END 2016-09-16 13:48 | disposition home health service (06) | DRG 637 ==
LOC: CED 09:17 → CEDOF 13:50 → CICCU3 13:50 → CEDOF 14:03 → CED 14:03 → CEDOF 16:58 → CICCU3 16:58 → C3A PCU 09-14 20:35
PROVIDERS: Family Medicine; Internal Medicine; Internal Medicine Pulmonary Disease; Physician Assistant Medical
PROC: 05H333Z Insertion of Infusion Device into Right Innominate Vein, Percutaneous Approach (ICD-10-PCS; principal; 2016-09-08)
PROC: 3E0436Z Introduction of Nutritional Substance into Central Vein, Percutaneous Approach (ICD-10-PCS; 2016-09-08)
PROC: B54MZZA Ultrasonography of Right Upper Extremity Veins, Guidance (ICD-10-PCS; 2016-09-08)
DX: E13.10 Other specified diabetes mellitus with ketoacidosis without coma (principal); J96.20 Acute and chronic respiratory failure, unspecified whether with hypoxia or hypercapnia; E44.0 Moderate protein-calorie malnutrition; K56.7 Ileus, unspecified; E83.39 Other disorders of phosphorus metabolism; E83.42 Hypomagnesemia; E87.1 Hypo-osmolality and hyponatremia; N39.0 Urinary tract infection, site not specified; E83.51 Hypocalcemia; K31.84 Gastroparesis; E11.43 Type 2 diabetes mellitus with diabetic autonomic (poly)neuropathy; I10 Essential (primary) hypertension; E03.9 Hypothyroidism, unspecified; F17.210 Nicotine dependence, cigarettes, uncomplicated; E87.6 Hypokalemia; Z90.49 Acquired absence of other specified parts of digestive tract; Z90.710 Acquired absence of both cervix and uterus; Z83.3 Family history of diabetes mellitus; Z96.89 Presence of other specified functional implants; S81.802D Unspecified open wound, left lower leg, subsequent encounter; S81.801D Unspecified open wound, right lower leg, subsequent encounter; Z79.84 Long term (current) use of oral hypoglycemic drugs
CPT/HCPCS: 36600; 71010; 71020; 72040; 74020; 74177; 80048; 80053; 80076; 80307; 81003; 82010; 82150; 82550; 82607; 82746; 82803; 82947; 83036; 83690; 83735; 84100; 84443; 84478; 84484; 85025; 85027; 86140; 87040; 87086; 93005; 94010; 94640; 94760; 94761; 96360; 97110; 97116; 97161; 97165; 97530; 97535; 99291; C9113; J0696; J1450; J1815; J2270; J2405; J2765; J3475; Q9967

== ENCOUNTER 2016-09-19 16:25 | Emergency (ER) | payer OTHER ==
[~2016-09-19 16:25] MED LIST changes: +BREO ELLIPTA 11 EACH PO; +COMBIVENT U/D3 M2 PO; +FORTAMET1000 MG PO; +GABAPENTIN800 MG PO; +LEVEMIR100 UNITS/ SUBQ; +NOVOLOG100 UNIT/1 SUBQ; +NOVOLOG100 UNITS/ SUBQ; +OMEGA 3 1,0001 EACH PO; +PAXIL PO; +SPIRIVA RESPIMAT4 G1 PO; +SYMBICORT PO; +SYNTHROID75 MCG PO; +WAL-DRYL25 MG PO
[2016-09-19 16:44] LABS: URINE SOURCE CLEAN CATCH
[2016-09-19 16:49] LABS: URINE APPEARANCE CLOUDY; URINE BILIRUBIN NEG (NEG); URINE BLOOD NEG (NEG); URINE COLOR YELLOW; URINE GLUCOSE >1000 MG/DL (NEG); URINE KETONE NEG (NEG); URINE LEUKOCYTE ESTERASE 1+ (NEG); URINE NITRATE NEG (NEG); URINE PROTEIN NEG (NEG); URINE SPECIFIC GRAVITY 1.022 (1.003-1.035)
[2016-09-19 16:51] LABS: CULTURE INDICATED? YES; URINE SQUAMOUS EPITHELIAL CELL MOD /[HPF]
[2016-09-19 17:06] LABS: URBCS1 AUWI 0-2 /[HPF] (0-2); URINE BACTERIA AUWI 1+ (NEGATIVE); URINE TRANSITIONAL EPI CELLS FEW /[HPF]
== END 2016-09-19 16:54 | disposition left against medical advice (07) ==
LOC: CED 16:25
PROVIDERS: Emergency Medicine
DX: Z53.21 Procedure and treatment not carried out due to patient leaving prior to being seen by health care provider (principal)
CPT/HCPCS: 81003; 87086

== ENCOUNTER → 2016-10-06 | Outpatient (CLI) | payer OTHER ==
--- NOTE | ~2016-10-06 | CR172 ---
[facility] A Service of [facility] RADIOLOGY TEXT RESULTS PATIENT: JO MCGRATH LOCATION: [facility] : 61 UNIT #: [id number] AGE: [address]: MAYLIN ALONZO APRN SEX: F ORDER DR: [id number] [facility] [address] [facility]. [place], [place] [address] [id number] O MR#: [id number] Acc #: [id number] NAME: JO MCGRATH : 1965 SEX: F STUDY DATE/TIME: 10/06/2016 11:21 UNIT: [facility] ROOM: STUDY DESCRIPTION: CR Knee 3 Views Lt Attending Physician: Maylin Alonzo Aprn Referring Physician: Maylin Alonzo Aprn Ordering Physician: Maylin Alonzo Aprn Primary Care Physician: Devika Meza Aprn MEDICAL IMAGING REPORT This report is preliminary unless electronic signature is present EXAM Left knee, 3 views HISTORY Left knee pain and swelling surgeries x2 fell 1 month ago. FINDINGS 3 views of the left knee demonstrates postsurgical changes from a left total knee arthroplasty. Study is limited as the most distal portion of the tibial component is not visualized. No evidence of periprosthetic fracture or loosening. There is a small knee effusion. Patient has undergone a patellar resurfacing procedure. IMPRESSION Status post left total knee arthroplasty components in expected position and alignment. Minimal knee effusion. Dictated by... Cam Mo M.D. THIS IS AN ELECTRONICALLY VERIFIED REPORT Cam Mo M.D. at 10/07/2016 2:46 PM CHERIE/satya TD: 10/06/2016 18:39 JOB #: [id number] MEDICAL IMAGING REPORT Page 1 of 1 COPY
== END | disposition home or self-care (01) ==
LOC: CRAD 10:37
DX: M25.562 Pain in left knee (principal); Z98.890 Other specified postprocedural states
CPT/HCPCS: 73562

== ENCOUNTER → 2016-10-15 | Outpatient (CLI) | payer OTHER ==
[2016-10-15 17:41] LABS: AMYLASE 9 U/L (0-46); LIPASE 11 U/L (22-51)
== END | disposition home or self-care (01) ==
LOC: CCHH 17:17
PROVIDERS: Internal Medicine
DX: K86.1 Other chronic pancreatitis (principal); K86.81 Exocrine pancreatic insufficiency
CPT/HCPCS: 82150; 83690

== ENCOUNTER 2016-11-07 20:15 | Emergency (ER) | payer OTHER ==
[~2016-11-07] VITALS: Ht 144.8 cm; Wt 61.7 kg
== END 2016-11-08 | disposition left against medical advice (07) ==
LOC: CED 20:15
DX: Z53.21 Procedure and treatment not carried out due to patient leaving prior to being seen by health care provider (principal)